=== PATIENT | male | born 1965 | race Caucasian/White ===

== ENCOUNTER 2018-01-22 13:29 | Emergency (ER) | payer MEDICAID ==
[~2018-01-22] VITALS: Ht 167.6 cm; Wt 66.0 kg
[2018-01-22 13:47] VITALS: BP 138/95
[2018-01-22] MEDS ORDERED: HYDROcodone/acetaminophen 10/325mg tab PO ONE (14:15)
[2018-01-22] MEDS ORDERED: amox tr/potassium clavulanate 875/125mg TAB PO ONE (14:15)
[2018-01-22] MEDS ORDERED: AMOX-580 PO (14:16)
== END 2018-01-22 14:36 | disposition home or self-care (01) ==
LOC: ER 13:30
DX: J32.1 Chronic frontal sinusitis (principal); J32.0 Chronic maxillary sinusitis; K08.89 Other specified disorders of teeth and supporting structures; F17.200 Nicotine dependence, unspecified, uncomplicated; Z88.8 Allergy status to other drugs, medicaments and biological substances
CPT/HCPCS: 99283